=== PATIENT | female | born 1990 | race Hispanic/Latino ===

== ENCOUNTER 2018-02-27 12:32 | Day surgery (SDC) | payer SELFPAY ==
--- NOTE | 2018-02-27 14:34 | PRG ---
DATE OF SERVICE: 02/27/2018 OB ER ENCOUNTER PRIMARY OB: Other. CHIEF COMPLAINT: Itching. HISTORY OF PRESENT ILLNESS: The patient is a 27-year-old G1, P0 female with an intrauterine pregnanc y at 29 weeks and 4 days, who moved to the community from [place] approximately 4 weeks ago and is presenting with a 2-week history of itching on her legs and thighs. The patient denies any specific rash. She denies any itching on the soles of her feet or palms of her hands. She has not found rel ief with baby powder and was worried that she may have something serious wrong. The patient denies f ever, headache, chest pain, shortness of breath. She has had some nausea without vomiting. Denies c onstipation or diarrhea. Denies vaginal bleeding, leaking fluid. Denies back pain. Denies urinary urgency or frequency. PAST MEDICAL HISTORY: Negative. PAST SURGICAL HISTORY: Negative. ALLERGIES: No known drug allergies. SOCIAL HISTORY: Denies drug, alcohol or tobacco use. MEDICATIONS: vitamins. OB LABS: Unavailable. REVIEW OF SYSTEMS: Per HPI. PHYSICAL EXAMINATION: VITAL SIGNS: Blood pressure is 115/63, heart rate of 96, respiratory rate of 16, temperature 97.6. GENERAL: She appears to be in no acute distress. She is alert and oriented, cooperative and pleasan t to interact with. HEENT: Normocephalic, atraumatic. LUNGS: Clear to auscultation bilaterally. HEART: Regular rate and rhythm. ABDOMEN: Soft and gravid, nontender. EXTREMITIES: Nontender, nonedematous. GENITOURINARY: Has been deferred. SKIN: She does not have any clear rash on her extremities. No excoriations. She does have a few ve ry small 1-2 mm macular, possibly papular red lesions, very sporadic, a couple on her abdomen, a coup le on her upper chest around her collarbone and a couple on her lower extremities. No jaundice appea ring skin, eyes or conjunctiva. IMAGING: heart tracing performed. Baseline is for pruritus and . NST performed. Du ration of tracing is 45 minutes. Baseline is noted to be in the 140s with moderate long-term variabi lity, positive accelerations, no decelerations. She has some irritability, possibly on the monitor, but not felt by the patient. ASSESSMENT AND PLAN: The patient is a 27-year-old female who recently has transferred to the [facility] and has no care at this time presenting with itching. The patient has been given reassur ance at this time there does not appear to have signs of any significant problems. She has been give n instructions to take lukewarm to cool showers with soap only for her groin and armpits and not to t owel dry, but to air dry and while she has wet skin to use a hydrating unscented lotion. The patient also been recommended topical Benadryl, oral Benadryl and if needed topical steroids. The patient h as been counseled that the rash and itching may worsen before it gets better. If the palms of her osborn nds, soles of her feet began itching or her itching just becomes persistent that she may need to be r eevaluated for possible more serious conditions including cholestasis of . The patient has expressed understanding. Today, we have also requested records from [facility] in [place] The patient from here has [facility] Fetus has reactive NST.
== END 2018-02-27 13:50 | disposition home or self-care (01) ==
LOC: L&D/OP 12:32
PROVIDERS: ATTEND Obstetrics & Gynecology
DX: O26.893 Other specified pregnancy related conditions, third trimester (principal); Z3A.29 29 weeks gestation of pregnancy
CPT/HCPCS: 99282